=== PATIENT | female | born 2000 | race Caucasian/White ===

== ENCOUNTER → 2020-10-09 14:43 | Outpatient (CLI) | payer OTHER, SELFPAY ==
[2020-10-09 16:53] LABS: Basophils % 0.3 % (0.1-2.0); Eosinophils # 0.1 K/mm3 (0.0-0.4); Eosinophils % 0.5 % (0.1-12.0); Hematocrit 40.4 % (37.0-47.0); Hemoglobin 13.7 g/dL (12.2-16.2); Lymphocytes # 1.4 K/mm3 (0.7-4.5); Lymphocytes % 13.6 % (10-50); Mean Corpuscular Hemoglobin 31.2 pg (27.0-31.2); Mean Corpuscular Volume 91.9 fl (81-99); Monocytes # 0.5 K/mm3 (0.1-1.0); Monocytes % 4.9 % (1.7-9.3); Neutrophils # 8.5 K/mm3 (1.8-7.8); Neutrophils % 80.7 % (37.0-80.0); Platelet Count 230 K/mm3 (142-424); Red Blood Count 4.39 M/mm3 (4.20-5.40); Red Cell Distribution Width 12.9 % (11.5-17.5); White Blood Count 10.5 K/mm3 (4.8-10.8)
== END ==
PROVIDERS: PCP Family Medicine; Visit Provider Family Medicine
DX: Z20.822 Contact with and (suspected) exposure to COVID-19 (principal)
CPT/HCPCS: 36415; 85025; U0003

== ENCOUNTER → 2021-07-01 14:10 | Outpatient (CLI) | payer SELFPAY | PROVIDERS: PCP Family Medicine; Visit Provider Nurse Practitioner | DX: Z20.822 Contact with and (suspected) exposure to COVID-19 (principal) | CPT/HCPCS: C9803; U0003; U0005 ==

== ENCOUNTER 2021-07-22 16:16 | Emergency (ER) | payer SELFPAY ==
--- NOTE | 2021-07-22 18:42 | HMH.EDUTC ---
[facility] [place] Clinical Impression: Viral syndrome, Exposure to COVID-19 virus Pharyngitis Qualifiers: Pharyngitis/tonsillitis etiology: unspecified etiology Qualified Code(s): J02.9 - Acute pharyngitis, unspecified Disposition: Home, Self-Care Condition on Discharge: Good Instructions: DI for Viral Syndrome Additional Instructions: Drink plenty of fluids. Take tylenol or ibuprofen for pain or fever. Take the medications as directed. Follow up with your regular doctor. GO TO THE ER FOR ANY WORSENING SYMPTOMS Quarantine until you know the results of your covid-19 test. Notify your school or workplace of your results and follow their instructions regarding return to work/school. The cough medication (promethazine dm) will make you drowsy, so don't drive or operate heavy machinery after taking it. Prescriptions: Promethazine/Dextromethorphan [Promethazine-Dm Syrup] 5 ml PO Q6HP PRN #240 ml PRN Reason: Cough Transmission Status: Received by [facility] Ondansetron [Zofran 4mg ODT] 4 mg PO Q8HP PRN #20 tab PRN Reason: Nausea Transmission Status: Received by [facility] Azithromycin [Z-Kody 250mg Tab*] 250 mg PO UD DOSE PK #6 tab Transmission Status: Received by [facility] Referrals: Nilesh Seo MD [Primary Care Provider] - Forms: Work/School Release Time of Disposition: 20:01 Medical Decision Making - Medical Records Medical records reviewed: No: I reviewed the patient's medical records. - Miguel Inquiry Pt receiving controlled substance: No Vital Signs: 07/22/21 19:25 07/22/21 20:07 Temperature 98.7 F 98.7 F Temperature Source Oral Pulse Rate 86 Pulse Rate [Left] 86 Respiratory Rate 18 18 Blood Pressure 147/75 H Blood Pressure [Right Arm] 147/75 H Blood Pressure Mean [Right Arm] 99 02 Sat by Pulse Oximetry 98 - Lab Data Lab results reviewed: Yes: I reviewed the patient's lab results. Lab Results 07/22/21 18:46: Group A Strep Rapid Negative Orders (Tests/Meds): ED MEDICATIONS Discontinued Medications Generic Name Dose Route Start Last Admin Trade Name Freq PRN Reason Stop Dose Admin Promethazine HCl 25 mg 07/22/21 19:39 01/24/22 19:48 Promethazine Hcl 25mg/Ml 1ml Vial IM 07/22/21 19:40 25 mg ONCE ONE Administration ORDERS Category Date Time Status Covid-19 Nasal PCR ([facility]) Routine Lab 07/22/21 19:40 Received Strep Screen Confirmation Stat Micro 07/22/21 18:46 Received [facility] [place] - General Stated complaint: covid test, sore throat,cough,OSCAR Vomiting, weak Time Seen by Provider: 07/22/21 18:42 - History of Present Illness Provider Complaint: She states that she has felt bad, had a cough, low grade fever, chest congestion and nausea since last night. - Related Data Previous Rx's Medication Instructions Recorded Ibuprofen [Ibuprofen 600mg 600 mg PO Q6HP PRN #20 tab 12/12/18 Tablet] clindamycin HCL [Clindamycin HCl 300 mg PO Q6 10 Days #40 cap 12/12/18 300mg Cap] Azithromycin [Z-Kody 250mg Tab*] 250 mg PO UD DOSE PK #6 tab 07/22/21 Ondansetron [Zofran 4mg ODT] 4 mg PO Q8HP PRN #20 tab 07/22/21 Promethazine/Dextromethorphan 5 ml PO Q6HP PRN #240 ml 07/22/21 [Promethazine-Dm Syrup] Allergies Allergy/AdvReac Type Severity Reaction Status Date / Time No Known Allergies Allergy Verified 10/20/18 13:38 [facility] History - Hepatitis A Screen Attestation statement:: This patient has been screened for Hepatitis A risk factors. I have reviewed the patient's past medical history: Yes Medical History: Reports:: Anxiety Laterality Cases: Bilateral: Myringotomy (Ear Tubes), Tonsillectomy Other Surgeries: Yes: No Previous Surgery Amputation: No Fractures: No - Social History Smoking Status: Current every day smoker Tobacco Type: cigarettes # Packs/Day (cigarettes): 1 Alcohol Intake: never Occupational Status: other - Psychiatric History Pschychiatric
[2021-07-22 19:25] VITALS: BP 147/75; PULSE 86; RESP 18; TEMP 37.1; O2SAT 98; BMI 22.1
[2021-07-22 20:07] VITALS: BP 147/75; PULSE 86; RESP 18; TEMP 37.1
[2021-07-22 20:39] LABS: Strep Scrn Group A (Rapid) Negative (Negative)
[2021-07-23 19:04] LABS: UTC Influenza A Antigen Negative (Negative); UTC Influenza B Antigen Negative (Negative)
== END 2021-07-22 21:01 | disposition home or self-care (01) ==
PROVIDERS: Emergency Provider Nurse Practitioner Family; PCP Family Medicine
DX: B34.9 Viral infection, unspecified (principal); J02.9 Acute pharyngitis, unspecified; Z20.822 Contact with and (suspected) exposure to COVID-19
CPT/HCPCS: 87430; 87804; 99202; C9803; G0463; U0003; U0005

== ENCOUNTER → 2021-08-19 16:24 | Outpatient (CLI) | payer SELFPAY | PROVIDERS: Visit Provider Nurse Practitioner | DX: U07.1 COVID-19 (principal) | CPT/HCPCS: C9803; U0003; U0005 ==

== ENCOUNTER 2022-05-23 18:23 | Emergency (ER) | payer SELFPAY ==
--- NOTE | 2022-05-23 18:56 | EXP.UTC ---
Discharge Plan Disposition Patient Disposition: Home, Self-Care Condition: Good Prescriptions Prescriptions: New oseltamivir [Tamiflu] 75 mg capsule 75 mg PO BID Qty: 10 0RF methylprednisolone 4 mg Tablets,Dose Pack 4 mg PO DIRECTED Qty: 21 0RF gndkonpdfhdsmbk-sgcilsepg-TG [Bromfed DM] 2-30-10 mg/5 mL Syrup 5 ml PO Q6H PRN (Reason: Cough) Qty: 240 0RF ondansetron 4 mg Tablet,Disintegrating 4 mg PO Q8H PRN (Reason: Nausea) Qty: 12 0RF Referrals Follow up/Referrals: Nilesh Seo MD [Primary Care Provider] - See instructions Activity Restrictions/Add. Instructions Additional Instructions/Restrictions: Drink plenty of fluids. Take tylenol or ibuprofen for pain or fever. Take the medications as directed. Follow up with your regular doctor. GO TO THE ER FOR ANY WORSENING SYMPTOMS Clinical Impressions Clinical Impression: Influenza A Stand Alone Forms Stand Alone Forms: Work/School Release Instructions Patient Instructions: DI for Influenza -- Adult, Oseltamivir Discharge ED Provider: Jace Machado [facility] General Stated complaint: exposed to flu, Time Seen by Provider: 05/23/22 18:56 History of Present Illness Provider Complaint: She states that since yesterday she has had fever, chills, body aces, chest tightness and malaise. Related Data Previous Rx's Medication Instructions Recorded uksdxavsdkpcmyk-lktybaxksfeivel-BH 5 ml PO Q6H PRN Cough #240 mL 05/23/22 2 mg-30 mg-10 mg/5 mL oral syrup (Bromfed DM) methylprednisolone 4 mg tablets in 4 mg PO DIRECTED #21 tabs 05/23/22 a dose pack ondansetron 4 mg disintegrating 4 mg PO Q8H PRN Nausea #12 tabs 05/23/22 tablet oseltamivir 75 mg capsule (Tamiflu) 75 mg PO BID #10 caps 05/23/22 Allergies Allergy/AdvReac Type Severity Reaction Status Date / Time No Known Allergies Allergy Verified 10/20/18 13:38 [facility] Medical History Anxiety Depression Kidney stone Liver disease Surgical History History of cholecystectomy History of tonsillectomy History of tympanostomy tube placement Social History Smoking Status: Current every day smoker tobacco type: cigarettes packs per day: 1 alcohol intake: never current occupational status: other Travel in the last 8 weeks: None ROS Obtained: Yes All systems reviewed & no additional complaints except as documented Constitutional Constitutional: Reports chills and Reports fever(s) Eyes Eyes: Denies eye discharge ENT Ears, Nose, Mouth, and Throat: Reports as per HPI Cardiovascular Cardiovascular: Denies chest pain Respiratory Respiratory: Denies chest congestion and Reports cough Gastrointestinal Gastrointestingal: Reports nausea; Denies abdominal pain, constipation, cramping, diarrhea or vomiting Musculoskeletal Musculoskeletal: Denies arthralgias Integumentary/Breasts Skin/Breast: Denies rash Neurologic Neurologic: Denies paresthesias Physical Exam General General appearance: alert and in no apparent distress Head Head exam: atraumatic, normocephalic and normal inspection Eye Eye exam: Present normal appearance, PERRL and EOMI ENT ENT exam: Present normal exam, normal oropharynx, mucous membranes moist, TM's normal bilaterally and normal external ear exam Neck Neck exam: Present normal inspection, full ROM and trachea midline; Absent meningismus or lymphadenopathy Chest Chest inspection: Present normal inspection and symmetric chest wall rise; Absent tenderness Respiratory Respiratory exam: Present normal lung sounds bilaterally; Absent respiratory distress Cardiovascular Cardiovascular exam: Present regular rate and normal rhythm; Absent JVD Abdominal Exam Abdominal exam: Present soft and normal bowel sounds; Absent distention, tenderness or guarding Extremities Exam Extremities
[2022-05-23 19:10] VITALS: BP 114/55; PULSE 69; RESP 20; TEMP 37; O2SAT 97; BMI 20.7
[2022-05-23 19:22] VITALS: BP 114/55; PULSE 69; RESP 20; TEMP 37; O2SAT 97
[2022-05-23 19:22] LABS: UTC Influenza A Antigen Positive (Negative); UTC Influenza B Antigen Negative (Negative)
== END 2022-05-23 19:57 | disposition home or self-care (01) ==
PROVIDERS: Emergency Provider Nurse Practitioner Family; PCP Family Medicine
DX: J10.1 Influenza due to other identified influenza virus with other respiratory manifestations (principal)
CPT/HCPCS: 87804; 99212; G0463

== ENCOUNTER 2023-02-19 15:34 | Emergency (ER) | payer OTHER, SELFPAY ==
[2023-02-19 15:34] VITALS: BP 124/79; PULSE 80; RESP 17; TEMP 36.7; O2SAT 100; BMI 23.6
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
[2023-02-19 15:58] LABS: Basophils # 0.1 K/mm3 (0-0.2); Basophils % 0.6 % (0.1-2.0); Eosinophils # 0.3 K/mm3 (0.0-0.4); Eosinophils % 3.5 % (0.1-12.0); Hematocrit 44.5 % (37.0-47.0); Hemoglobin 14.6 g/dL (12.2-16.2); Lymphocytes # 1.8 K/mm3 (0.7-4.5); Lymphocytes % 20.3 % (10-50); Mean Corpuscular HGB Conc 32.8 g/dL (31.8-35.4); Mean Corpuscular Hemoglobin 30.8 pg (27.0-31.2); Mean Corpuscular Volume 93.9 fl (81-99); Mean Platelet Volume 7.8 fl (7.4-10.4); Monocytes # 0.4 K/mm3 (0.1-1.0); Monocytes % 4.5 % (1.7-9.3); Neutrophils # 6.3 K/mm3 (1.8-7.8); Neutrophils % 71.3 % (37.0-80.0); Platelet Count 266 K/mm3 (142-424); Red Blood Count 4.74 M/mm3 (4.20-5.40); Red Cell Distribution Width 12.8 % (11.5-17.5); White Blood Count 8.8 K/mm3 (4.8-10.8)
[2023-02-19 16:01] LABS: Chloride 107 mmol/L (98-107); Potassium 3.9 mmoL/L (3.5-5.1); Sodium 139 mmol/L (136-145)
[2023-02-19 16:04] LABS: Alanine Aminotransferase 41 U/L (12-78); Albumin/Globulin Ratio 1.4 (1.1-1.8); Alkaline Phosphatase 99 U/L (38-126); Anion Gap 9.9 mEq/L (5-15); Aspartate Amino Transferase 74 U/L (14-36); Bilirubin,Total 0.4 mg/dl (0.2-1.3); Blood Urea Nitrogen 10 mg/dl (7-17); Carbon Dioxide 26 mmol/L (22.0-30.0); Creatinine Clearance Estimated 103 mL/min (50-200); Estimated Glomerular Filt Rate 88 ml/min (>60); GFR (African American) 107 ML/MIN (>60); Globulin 2.9 g/dL (1.3-3.2); Total Protein,Serum 6.9 g/dl (6.3-8.2)
[2023-02-19 16:05] LABS: Calcium 9.2 mg/dl (8.4-10.2); Glucose 98 mg/dl (74-100)
[2023-02-19 16:06] LABS: HCG Qualitative, Serum Negative (Negative)
[2023-02-19 16:20] VITALS: BP 135/56; PULSE 78; O2SAT 98
--- NOTE | 2023-02-19 16:25 | PC.NURSE ---
TO CT/xray via wheelchair
[2023-02-19 16:29] LABS: Microscopic, Urine URINE MICROSCOPIC (MICROSCOPIC)
[2023-02-19 16:35] LABS: Appearance,Urine CLEAR (Clear); Bilirubin,Urine Negative (Negative); Blood, Urine TRACE-I (Negative); Color,Urine YELLOW (Yellow); Glucose,Urine (UA) Negative (Negative); Ketones,Urine Negative (Negative); Leukocyte Esterase,Urine Negative (Negative); Nitrate,Urine Negative (Negative); PH,Urine 5.5 (5.0-8.5); Protein,Urine Negative (Negative); Specific Gravity, Urine >= 1.030 (1.005-1.030); Urobilinogen,Urine 0.2 EU/dl (0.2)
[2023-02-19 16:36] LABS: Urine Pregnancy, HCG Qual. Negative (Negative)
[2023-02-19 17:09] LABS: Squamous Epithelial Cell,Urine Occasional #/hpf (0-5)
[2023-02-19 17:43] VITALS: BP 132/68; PULSE 79; O2SAT 99
[2023-02-19 19:15] VITALS: BP 110/68; PULSE 72; RESP 19; TEMP 36.6; O2SAT 99
== END 2023-02-19 19:21 | disposition home or self-care (01) ==
PROVIDERS: Emergency Provider Emergency Medicine; PCP Family Medicine
DX: S82.121A Displaced fracture of lateral condyle of right tibia, initial encounter for closed fracture (principal); R51.9 Headache, unspecified; V48.5XXA Car driver injured in noncollision transport accident in traffic accident, initial encounter; F41.9 Anxiety disorder, unspecified; F32.A Depression, unspecified; F17.210 Nicotine dependence, cigarettes, uncomplicated; Z23 Encounter for immunization
CPT/HCPCS: 36415; 70450; 71045; 73552; 73560; 73590; 80053; 81001; 81025; 84703; 85025; 86850; 90715; 96372; 96374; 99285; J0131

== ENCOUNTER → 2023-03-12 08:50 | Outpatient (CLI) | payer OTHER, SELFPAY ==
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
== END ==
PROVIDERS: PCP Family Medicine; Visit Provider Orthopaedic Surgery
DX: S82.121A Displaced fracture of lateral condyle of right tibia, initial encounter for closed fracture (principal); Y99.9 Unspecified external cause status
CPT/HCPCS: 73721

== ENCOUNTER 2023-04-30 18:34 | Emergency (ER) | payer BC, SELFPAY ==
[2023-04-30 18:50] VITALS: BP 126/68; PULSE 76; RESP 20; TEMP 36.8; O2SAT 98; BMI 23.6
[2023-04-30 19:08] LABS: UTC Strep Screen (Rapid) Negative (Negative)
[2023-04-30 19:09] LABS: UTC Influenza A Antigen Negative (Negative); UTC Influenza B Antigen Negative (Negative)
[2023-04-30 19:21] VITALS: BP 126/68; PULSE 76; RESP 20; TEMP 36.8; O2SAT 98
--- NOTE | 2023-04-30 19:50 | EXP.UTC ---
Discharge Plan Disposition Patient Disposition: Home, Self-Care Condition: Good Prescriptions Prescriptions: New amoxicillin 500 mg capsule 500 mg PO TID 10 Days Qty: 30 0RF methylprednisolone [Medrol (Kody)] 4 mg tablets,dose pack See Rx Instructions .Route .COMPLEX 6 Days Qty: 21 0RF Rx Instructions: taper pack; xeskrpyabqxzwxz-sfagxpncm-GO [Bromfed DM] 2-30-10 mg/5 mL Syrup 10 ml PO Q4H PRN (Reason: Cough) Qty: 200 0RF Referrals Follow up/Referrals: Nilesh Seo MD [Primary Care Provider] - See instructions Activity Restrictions/Add. Instructions Additional Instructions/Restrictions: *Monitor Temp, Over the counter Motrin or Tylenol as directed/as needed Tylenol every 4 hours and Motrin every 6 hours (as long as your family doctor has told you that you can take it) for fever or pain. and straight to ER if unable to lower temp less than 101.0 after medication given *Warm salt water gargles may help to soothe the throat *Throat Lozenges? *Warm fluids like tea with honey may help to soothe the throat? *Sleep elevated *Humidifier/Vaporizer *Bromfed may cause drowsiness. Know how it effects you (your child) before driving, caring for small child, or sending your child to school. Not other antihistamines/allergy medications while taking bromfed Your throat swab was sent for culture. Those results are typically sent to your primary care. Be sure to follow up in 2-3 days with your family doctor/primary care physician if no improvement so they can review those result and treat if necessary. If you don?t have a primary care doctor, I recommend you get one but in the mean time, you will have to return to a walk in clinic Follow up IMMEDIATELY for new or worsening symptoms or no Noticeable improvement over the next 48-72 hours. 911 for difficulty breathing or swallowing Clinical Impressions Clinical Impression: Otitis media Qualifiers: Otitis media type: unspecified Laterality: bilateral Qualified Code(s): H66.93 - Otitis media, unspecified, bilateral Instructions Patient Instructions: Middle Ear Infection, DI for Sinusitis Discharge ED Provider: Kristal Carrasco [facility] HPI General Stated complaint: cough, jerson diarrhea Mode of Arrival: Ambulatory Source of Information: Patient Limitations: No Limitations Time Seen by Provider: 04/30/23 19:50 Description of Symptoms (Recalled from Triage Doc. by RN): PATIENT C/O COUGH, BODY ACHES, CHILLS, CONGESTION, HEADACHE AND SORE THROAT X 1 WEEK HEENT Symptoms (Recalled from RN notes): Yes Resp Symptoms (Recalled from RN notes): Yes Skin Symptoms (Recalled from RN notes): No MS Symptoms (Recalled from RN notes): No Functional Status (Recalled from RN notes): WNL History of Present Illness Provider Complaint: Patient states that she has been sick for over a week States that she has been having sinus congestion, pressure, bilateral ear pain, sore throat, cough bodyaches and headache States that she thought it may be a virus but today she was still not feeling well and her ears was getting worse so she came in to get checked Related Data Previous Rx's Medication Instructions Recorded amoxicillin 500 mg capsule 500 mg PO TID 10 days #30 caps 04/30/23 abbierlvctqcydh-bsxetovuuplghju-CV 10 ml PO Q4H PRN Cough #200 mL 04/30/23 2 mg-30 mg-10 mg/5 mL oral syrup (Bromfed DM) methylprednisolone 4 mg tablets in See Rx Instructions .Route 04/30/23 a dose pack (Medrol (Kody)) .COMPLEX 6 days #21 tabs Allergies Allergy/AdvReac Type Severity Reaction Status Date / Time No Known Allergies Allergy Verified 03/19/23 10:04 Worker's Comp Is this a Worker's Comp case?: No [facility] Disclaimer: The information contained in this section may have been updated after the patient was seen, as this information can be updated by other users. Medical History Anxiety De
[2023-04-30 20:02] LABS: UTC Pregnancy Test, Urine Negative (Negative)
== END 2023-04-30 20:18 | disposition home or self-care (01) ==
PROVIDERS: Emergency Provider Nurse Practitioner; PCP Family Medicine
DX: H66.93 Otitis media, unspecified, bilateral (principal); J01.90 Acute sinusitis, unspecified; F17.210 Nicotine dependence, cigarettes, uncomplicated
CPT/HCPCS: 81025; 87804; 87880; 99212; 99214; G0463

== ENCOUNTER 2024-11-28 14:08 | Outpatient (CLI) | payer OTHER, SELFPAY ==
--- NOTE | 2024-11-28 14:15 | US_ITS ---
PROCEDURE: US TRANSVAGINAL CLINICAL INDICATION: abnormal menses COMPARISON: No exams were available for comparison FINDINGS: Transvaginal sonographic images of the pelvis were obtained. UTERUS: 7.6 cm x 4.4cmx 2.8 cm anteverted with a combined endometrial thickness of 7.7mm. The endometrium is trilaminar. LEFT OVARY: 3.0cmx2.1cmx2.0cm with a volume of 6.7ml. There is a dominant follicle measuring 1.9 cm x 1.5 cm x 2.3 cm. There are multiple small peripheral follicles. RIGHT OVARY: 3.0cmx 2.7 cmx2.9 cm with a volume of 11.9ml. There are multiple small peripheral follicles. Both ovaries are seen and appear normal. Doppler flow to both ovaries are seen. There is trace fluid in the cul-de-sac. IMPRESSION: 1. Anteverted uterus normal in shape and size. The endometrium is trilaminar and normal. 2. Both ovaries are seen and appear multi-cystic. There is a dominant follicle on the left ovary measuring 2.3 cm. 3. There is trace fluid in the cul-de-sac. Dictated by: Mahamde Sargent MD 11/29/2024 06:23 Mahamed Sargent MD in OV 11/29/2024 06:23
== END 2024-11-28 23:59 | disposition home or self-care (01) ==
LOC: RAD 14:09
PROVIDERS: PCP Family Medicine; Visit Provider Obstetrics & Gynecology
DX: E28.2 Polycystic ovarian syndrome (principal); N83.02 Follicular cyst of left ovary; N85.8 Other specified noninflammatory disorders of uterus
CPT/HCPCS: 76830